=== PATIENT | male | born 1995 | race African-American/Black ===

== ENCOUNTER 2016-06-28 00:06 | Emergency (ER) | payer OTHER ==
[~2016-06-28] VITALS: Ht 165.1 cm; Wt 68.0 kg
--- NOTE | 2016-06-28 00:08 | ED GENERAL ADULT ---
History of Present Illness General Chief Complaint: ETOH/Drug Related Complaint Stated Complaint: BIBA FOR ETOH Source: EMS, friend Exam Limitations: intoxication Vital Signs & Intake/Output Vital Signs & Intake/Output Vital Signs Date Time Temp Pulse Resp B/P B/P Pulse O2 O2 Flow FiO2 Mean Ox Delivery Rate 06/28 0745 96.5 88 16 118/72 96 Room Air 06/28 0547 82 16 136/70 97 Room Air 06/28 0008 95.0 54 18 119/67 98 Room Air Triage Nurses Notes Reviewed? yes HPI: Patient was at a [employer] party this evening and was drinking heavily. Patient denies drug intoxication. Patient brought in for evaluation. No history of any trauma. Patient semi-responsive and dry heaving. (ANTHONY BORJAS,SIMEON Gale) Past History Travel History Traveled to [place] past 21 day No Medical History Any Pertinent Medical History? none Surgical History Surgical History: non-contributory Psychosocial History Tobacco Use: Never used ETOH Use: TONIGHT Illicit Drug Use: denies illicit drug use Family History Hx Contributory? No (ANTHONY BORJAS,SIMEON Gale) Review of Systems Review of Systems Constitutional: Reports: no symptoms. EENTM: Reports: no symptoms. Respiratory: Reports: no symptoms. Cardiovascular: Reports: no symptoms. GI: Reports: see HPI, nausea. Genitourinary: Reports: no symptoms. Musculoskeletal: Reports: no symptoms. Skin: Reports: no symptoms. Neurological/Psychological: Reports: no symptoms. Hematologic/Endocrine: Reports: no symptoms. Immunologic/Allergic: Reports: no symptoms. All Other Systems: Reviewed and Negative (ANTHONY BORJAS,SIMEON Gale) Physical Exam Physical Exam General Appearance: well developed/nourished, no apparent distress, awake, intoxicated Head: atraumatic, normal appearance Eyes: Bilateral: PERRL, EOMI, other (SLUGGISH). Ears, Nose, Throat: normal pharynx, normal ENT inspection Neck: normal inspection, supple, full range of motion, no midline tenderness Respiratory: normal breath sounds, chest non-tender, no respiratory distress, lungs clear Cardiovascular: regular rate/rhythm, normal peripheral pulses Gastrointestinal: normal bowel sounds, soft, non-tender, no organomegaly Back: normal inspection, normal range of motion Extremities: normal inspection, normal capillary refill, normal range of motion, no edema Neurologic/Psych: no motor/sensory deficits, awake Skin: intact, normal color, warm/dry Core Measures ACS in differential dx? No CVA/TIA Diagnosis: No Severe Sepsis Present: No Septic Shock Present: No (ANTHONY BORJAS,SIMEON Gale) Progress Differential Diagnoses I considered the following diagnoses in my evaluation of the patient: [Alcohol intoxication, allergy, drug intoxication] Plan of Care: Orders Procedure Date/time Status URINE DRUGS OF ABUSE 06/28 8 Complete ETHANOL 06/28 8 Complete COMPREHENSIVE METABOLIC PANEL 06/28 8 Complete CBC WITHOUT DIFFERENTIAL 06/28 8 Complete Laboratory Tests 06/28/16 0405: Urine Opiates Screen < 100.00, Methadone Screen < 40, Barbiturate Screen < 60, Ur Phencyclidine Scrn < 6.00, Amphetamines Screen < 100, U Benzodiazepines Scrn < 85, Urine Cocaine Screen < 50, Urine Cannabis Screen < 5.00 06/28/16 0037: Anion Gap 16, Estimated GFR > 60, BUN/Creatinine Ratio 16.0, Glucose 88, Calcium 9.4, Total Bilirubin 0.4, AST 47, ALT 36, Alkaline Phosphatase 82, Total Protein 8.2, Albumin 4.7, Globulin 3.5, Albumin/Globulin Ratio 1.3, CBC w Diff NO MAN DIFF REQ, RBC 4.97, MCV 89.4, MCH 29.7, RDW 12.9, MPV 7.4, Gran % 72.4, Lymphocytes % 23.9, Monocytes % 3.1, Eosinophils % 0.2, Basophils % 0.4, Absolute Granulocytes 4.0, Absolute Lymphocytes 1.3, Absolute Monocytes 0.2, Absolute Eosinophils 0, Absolute Basophils 0, PUBS MCHC 33.2, Serum Alcohol 297.0 Initial ED EKG: none Hand-Off Endorsed To: CAESAR VARGAS MD Endorsed Time: 0700 Pending: other (SOBRIETY) (ANTHONY BORJAS,SIMEON Gale) Comments: 06/28/2016 7:13:42 AM patient signed out to me by Dr. Cruz at shift exchange consultant. 06/28/2016 10:32:54 AM patient is now clinically sober with clear speech and stable gait. A friend has presented to the emergency department to provide a ride home. (CAESAR VARGAS MD) Departure Departure Disposition: HOME OR SELF CARE Condition: Stable Clinical Impression Primary Impression: Alcohol intoxication Additional Instructions: RETURN FOR ANY CONCERNS Departure Forms: Customer Survey General Discharge Information (SIMEON CRUZ MD) Critical Care Note Critical Care Note Critical Care Time: non-applicable (ANTHONY BORJAS,SIMEON Gale)
[2016-06-28 01:06] LABS: ABSOLUTE BASOPHIL COUNT 0 /CUMM (0.0-0.2); ABSOLUTE EOSINOPHIL COUNT 0 /CUMM (0.0-0.7); ABSOLUTE LYMPH COUNT 1.3 /CUMM (1.2-3.4); ABSOLUTE MONOCYTE COUNT 0.2 /CUMM (0.10-0.60); BASOPHIL % 0.4 % (0.0-2.0); EOSINOPHIL % 0.2 % (0-5); GRANULOCYTE % 72.4 % (42.2-75.2); HEMATOCRIT 44.5 % (42-52); MEAN CORPUSCULAR HGB 29.7 PG (27.0-31.0); MEAN CORPUSCULAR HGB CONC 33.2 G/DL (33.0-37.0); MEAN CORPUSCULAR VOLUME 89.4 FL (80.0-94.0); MEAN PLATELET VOLUME 7.4 FL (7.4-10.4); PLATELET COUNT 224 /CUMM (130-400); RBC DISTRIBUTION WIDTH 12.9 % (11.5-14.5); RED BLOOD CELL CT 4.97 /CUMM (4.70-6.10); WHITE BLOOD CELL COUNT 5.5 /CUMM (4.8-10.8)
== END 2016-06-28 10:34 ==
LOC: ERH 00:06
PROVIDERS: Emergency Medicine
DX: F10.129 Alcohol abuse with intoxication, unspecified (principal)
CPT/HCPCS: 80307; 96372; 96374; G0480; J1200